=== PATIENT | female | born 1965 | race Caucasian/White ===

== ENCOUNTER 2020-08-23 21:24 | Observation (INO) ==
[2020-08-23 22:14] LABS: Basophils % 0.5 %; Hemoglobin 11.7 g/dL (11.5-15.4); Immature Granulocytes % 0.2 % (0-4)
[2020-08-23 22:16] LABS: Hematocrit 33.7 % (35.3-44.9); Immature Platelets 5.9 % (1.1-6.1); Lymphocytes # 0.4 K/mcL (0.6-4.6); Lymphocytes % 8.4 %; Mean Corpuscular HGB Conc 34.7 g/dL (31.6-35.5); Mean Corpuscular Hemoglobin 31.5 pg (28.0-33.3); Mean Corpuscular Volume 90.8 fL (83.0-100.0); Mean Platelet Volume 10.9 fL (9.4-12.4); Monocytes # 0.3 K/mcL (0.0-1.3); Monocytes % 6.7 %; Neutrophils # 3.6 K/mcL (1.6-8.9); Platelet Count 137 K/mcL (140-400); Red Blood Count 3.71 M/mcL (3.82-4.97); Segmented Neutrophils % 84.2 %; White Blood Count 4.3 K/mcL (4.3-11.1)
[2020-08-23 22:20] LABS: INR 1.2; Prothrombin Time 13.6 Seconds (9.4-12.1)
[2020-08-23 22:23] LABS: Activated Partial Thrombo Time 26.2 Seconds (26.0-36.0)
[2020-08-23] MEDS ORDERED: Isovue-370 500 ML BOTTLE IVP ONE (22:45)
[2020-08-23 22:48] LABS: Alanine Aminotransferase 19 Units/L (7-52); Albumin/Globulin Ratio 1.2 (1.1-2.2); Alkaline Phosphatase 50 Units/L (34-104); Aspartate Amino Transferase 37 Units/L (13-39); BUN/Creatinine Ratio 13 (6-26); Bilirubin,Direct 0.1 mg/dL (0.0-0.2); Bilirubin,Indirect 0.4 mg/dL (0.0-1.0); Bilirubin,Total 0.5 mg/dL (0.3-1.0); Blood Urea Nitrogen 14 mg/dL (6-20); Carbon Dioxide 22 mEq/L (23-29); Chloride 99 mEq/L (98-107); Globulin 3.3 g/dL (2.4-3.5); Glucose 126 mg/dL (70-105); Lipase 11 Units/L (11-82); Osmolality,Calculated 278 (280-300); Potassium 3.7 mEq/L (3.5-5.1); Sodium 133 mEq/L (136-145); Total Protein 7.3 g/dL (6.4-8.9); Troponin I < 0.03 ng/mL (< 0.04); eGFR For African Americans > 60 (> 60); eGFR For Non-African Americans 51 (> 60)
[2020-08-23 22:51] LABS: Platelet Estimate Normal (Normal)
[2020-08-24] MEDS ORDERED: Naloxone 0.4 MG/ML INJ IVP PRN (02:38)
[2020-08-24] MEDS ORDERED: Ondansetron 4 MG/2 ML VIAL IVP PRN (02:38)
[2020-08-24] MEDS ORDERED: Ipratropium/Albuterol Neb 3 ML IH PRN (02:41)
[2020-08-24] MEDS ORDERED: Pantoprazole 40 MG VIAL IVP ONE (03:11)
[2020-08-24] MEDS ORDERED: 0.9 % Sodium Chloride 1,000 ML IVC SCH (03:15)
[2020-08-24 04:11] LABS: Chol/HDL Ratio 4.8 (0-4.9); Lactate Dehydrogenase 211 Units/L (140-271)
[2020-08-24 04:13] LABS: Troponin I < 0.03 ng/mL (< 0.04)
[2020-08-24] MEDS ORDERED: Regadenoson 0.4 MG/5 ML SYRINGE IVP ONE (05:50)
[2020-08-24] MEDS ORDERED: *HR* Enoxaparin 40 MG/0.4 ML SYRINGE SQ SCH (06:00)
[2020-08-24] MEDS ORDERED: hydroCHLOROthiazide 25 MG TABLET PO SCH (09:00)
[2020-08-24 13:08] LABS: Estimated Average Glucose 111 mg/dl
[2020-08-24 13:31] LABS: Adenovirus Not Detected (Not Detect); Bordetella Pertussis Not Detected (Not Detect); Chlamydophila pneumoniae Not Detected (Not Detect); Coronavirus 229E Not Detected (Not Detect); Coronavirus HKU1 Not Detected (Not Detect); Coronavirus NL63 Not Detected (Not Detect); Coronavirus OC43 Not Detected (Not Detect); Human Metapneumovirus Not Detected (Not Detect); Human Rhinovirus/Enterovirus Not Detected (Not Detect); Influenza A Subtype 2009 H1 Not Detected (Not Detect); Influenza B Not Detected (Not Detect); Mycoplasma pneumoniae Not Detected (Not Detect); Parainfluenza Virus 1 Not Detected (Not Detect); Parainfluenza Virus 2 Not Detected (Not Detect); Parainfluenza Virus 3 Not Detected (Not Detect); Parainfluenza Virus 4 Not Detected (Not Detect); Respiratory Syncytial Virus Not Detected (Not Detect)
[2020-08-24] MEDS ORDERED: Perflutren Lipid Microsphere 1.3 ML in 0.9 % Sodium Chloride 8.7 ML IVP PRN (15:25)
[2020-08-24 15:38] LABS: Troponin I < 0.03 ng/mL (< 0.04)
[2020-08-24] MEDS: *HR* LORazepam 1 MG TABLET PO SCH ×2 (17:55→20:10)
[2020-08-24] MEDS: carvediloL 6.25 MG TABLET PO SCH ×2 (17:55→17:57)
[2020-08-24] MEDS: *HR* Rivaroxaban 15 MG TABLET PO SCH (17:57)
[2020-08-24 18:35] LABS: Thyroid Stimulating Hormone 0.666 mcIU/mL (0.340-5.600)
[2020-08-24] MEDS ORDERED: *HR* Rivaroxaban 15 MG TABLET PO SCH (21:00)
[2020-08-25 02:09] LABS: Basophils % 0.8 %; Red Cell Distribution Width 11.9 % (11.5-14.5)
[2020-08-25 02:11] LABS: Eosinophils % 0.4 %; Hematocrit 33.4 % (35.3-44.9); Hemoglobin 11.5 g/dL (11.5-15.4); Immature Granulocytes % 0.4 % (0-4); Immature Platelets 8.3 % (1.1-6.1); Lymphocytes # 0.5 K/mcL (0.6-4.6); Lymphocytes % 17.4 %; Mean Corpuscular HGB Conc 34.4 g/dL (31.6-35.5); Mean Corpuscular Hemoglobin 32.2 pg (28.0-33.3); Mean Corpuscular Volume 93.6 fL (83.0-100.0); Monocytes # 0.3 K/mcL (0.0-1.3); Monocytes % 11.7 %; Red Blood Count 3.57 M/mcL (3.82-4.97); Segmented Neutrophils % 69.3 %; White Blood Count 2.7 K/mcL (4.3-11.1)
[2020-08-25 02:14] LABS: Neutrophils # 1.9 K/mcL (1.6-8.9); Platelet Count 93 K/mcL (140-400)
[2020-08-25 02:25] LABS: Calcium 8.9 mg/dL (8.6-10.3); Magnesium 1.7 mg/dL (1.6-2.6); Phosphorous 3.5 mg/dL (2.7-4.5); Potassium 3.2 mEq/L (3.5-5.1)
[2020-08-25] MEDS: *HR* Rivaroxaban 15 MG TABLET PO SCH (05:41)
[2020-08-25] MEDS: *HR* LORazepam 1 MG TABLET PO SCH (08:16)
[2020-08-25] MEDS: carvediloL 6.25 MG TABLET PO SCH (08:16)
[2020-08-25 15:37] VITALS: BP 106/74
== END 2020-08-25 17:10 | disposition home or self-care (01) ==
LOC: 3BNU 21:24 → EMEROOARM 21:24 → 3BNU 08-24 02:00
PROVIDERS: ADMIT Internal Medicine; ATTEND Internal Medicine